=== PATIENT | male | born 1980 | race African-American/Black ===

== ENCOUNTER 2020-06-27 14:14 | Emergency (ER) | payer OTHER, BC ==
[~2020-06-27] VITALS: Ht 180.3 cm; Wt 117.9 kg
[~2020-06-27 14:14] MED LIST: TOPAMAX 100 MG100 MG
[2020-06-27] MEDS ORDERED: ONZETRA XSAIL11 MG PO (14:33)
[2020-06-27] MEDS ORDERED: APAP W/CODEINE1 TA2 PO (16:55)
[2020-06-27] MEDS ORDERED: FLEXERIL PO (16:55)
[2020-06-27] MEDS ORDERED: MEDROLDOSEPACK PO (16:55)
[2020-06-27 17:18] VITALS: BP 138/72
== END 2020-06-27 17:19 | disposition home or self-care (01) ==
LOC: M.ERS 14:14
DX: S16.1XXA Strain of muscle, fascia and tendon at neck level, initial encounter (principal); M54.6 Pain in thoracic spine; M25.551 Pain in right hip; M79.651 Pain in right thigh; G43.909 Migraine, unspecified, not intractable, without status migrainosus; Z79.899 Other long term (current) drug therapy; V89.2XXA Person injured in unspecified motor-vehicle accident, traffic, initial encounter; Y93.89 Activity, other specified; Y92.488 Other paved roadways as the place of occurrence of the external cause; Y99.8 Other external cause status

== ENCOUNTER 2021-01-31 20:56 | Emergency (ER) | payer BC ==
[~2021-01-31] VITALS: Ht 180.3 cm; Wt 117.9 kg
[~2021-01-31 20:56] MED LIST changes: +APAP W/CODEINE1 TA2 PO; +FLEXERIL PO; +MEDROLDOSEPACK PO; +ONZETRA XSAIL11 MG PO
[2021-01-31 21:40] VITALS: BP 173/99
== END 2021-01-31 21:40 | disposition home or self-care (01) ==
LOC: M.ERS 20:56
DX: G43.909 Migraine, unspecified, not intractable, without status migrainosus (principal); I10 Essential (primary) hypertension